=== PATIENT | female | born 1975 | race Two or more races ===

== ENCOUNTER → 2023-09-16 15:41 | Outpatient (REF) | payer BC, SELFPAY | LOC: WDC 15:41 | PROVIDERS: ATTENDING PHYSICIAN Obstetrics & Gynecology Gynecology; FAMILY PHYSICIAN Internal Medicine Geriatric Medicine | DX: Z12.31 Encounter for screening mammogram for malignant neoplasm of breast (principal) | CPT/HCPCS: 77063; 77067 ==

== ENCOUNTER → 2024-01-18 08:52 | Outpatient (REF) | payer BC, SELFPAY ==
[2024-01-18 09:47] LABS: % Basophils 0.5 % (0-2); % Eosinophils 2.8 % (0-6); % Immature Granulocytes 0.4 % (0-0.5); % Lymphocytes 27.9 % (20.5-51.1); % Monocytes 6.4 % (1.7-9.3); Absolute Eosinophils 0.2 10^3/uL (0-0.7); Absolute Lymphocytes 2.2 10^3/uL (1.2-3.4); Absolute Monocytes 0.5 10^3/uL (0.1-0.6); Absolute Neutrophils 4.8 10^3/uL (1.4-6.5); Hematocrit 36.7 % (37.0-47.0); Hemoglobin 12.2 g/dL (12.0-16.0); Mean Corp Hgb Conc. 33.2 g/dL (33.0-37.0); Mean Corpuscular Hgb 27.9 pg (27.0-31.0); Mean Corpuscular Volume 83.8 fL (81.0-99.0); Mean Platelet Volume 11.6 fL (7.4-10.4); Nucleated Red Blood Cells % 0 %; Platelet Count 230 10^3/uL (130-400); Red Blood Cell Count 4.38 10^6/uL (4.20-5.40); Red Cell Dist. Width 14.3 % (11.5-14.5); White Blood Cell Count 7.8 10^3/uL (4.8-10.8)
[2024-01-18 09:51] LABS: ALT (SGPT) 26 U/L (0-35); AST (SGOT) 30 U/L (14-36); Alkaline Phosphatase 68 U/L (38-126); Blood Urea Nitrogen 12 mg/dl (7-17); Calcium 9.6 mg/dl (8.4-10.2); Carbon Dioxide 30 mmol/L (22-30); Chloride 101 mmol/L (98-107); Glucose 99 mg/dl (70-99); HDL Cholesterol 84 mg/dl; Iron 101 ug/dl (37-170); LDL Cholesterol, Calculated 89 mg/dl; Sodium 136 mmol/L (135-145); Total Bilirubin 0.5 mg/dl (0.2-1.3); Total Cholesterol 190 mg/dl (50-199); Total Protein 6.7 g/dl (6.3-8.2); Triglyceride 85 mg/dl (10-149); Very Low Density Lipoprotein 17 mg/dl (0-30); eGFR > 60.00
[2024-01-18 10:01] LABS: Percent Saturation 24 % (20-50); Total Iron Binding Capacity 409 ug/dl (265-497)
[2024-01-18 10:09] LABS: Free T4 1.21 ng/dl (0.78-2.19)
[2024-01-18 10:22] LABS: TSH 1.85 uIU/ml (0.47-4.68)
[2024-01-18 10:31] LABS: Erythrocyte Sed Rate 11 mm/hour (0-20)
[2024-01-18 14:32] LABS: Urine Albumin Negative (Neg - Trace); Urine Bilirubin Negative (Negative); Urine Character Clear (Clear); Urine Color Yellow; Urine Glucose Negative (Negative); Urine Ketone Negative (Negative); Urine Leukocyte Trace (Negative); Urine Nitrite Negative (Negative); Urine Occult Blood Negative (Negative); Urine Specific Gravity 1.005 (<1.030); Urine Urobilinogen Negative (Neg - 1+)
[2024-01-18 14:56] LABS: Urine Red Blood Cell 0-2 /HPF (0-2); Urine White Cell 0-2 /HPF (0-5)
[2024-01-19 16:14] LABS: Thyroglobulin Antibodies <0.9 IU/mL (0.0-4.0); Thyroid Peroxidase Ab (TPO) <0.3 IU/mL (0.0-9.0)
== END ==
LOC: CLAB 08:52
PROVIDERS: ATTENDING PHYSICIAN Internal Medicine Geriatric Medicine
DX: Z00.00 Encounter for general adult medical examination without abnormal findings (principal); K21.9 Gastro-esophageal reflux disease without esophagitis; E61.1 Iron deficiency; E78.2 Mixed hyperlipidemia; E53.8 Deficiency of other specified B group vitamins; E74.39 Other disorders of intestinal carbohydrate absorption; F41.1 Generalized anxiety disorder; E03.8 Other specified hypothyroidism; E55.9 Vitamin D deficiency, unspecified; M25.561 Pain in right knee; M25.511 Pain in right shoulder; M54.2 Cervicalgia; M25.512 Pain in left shoulder; M54.50 Low back pain, unspecified; Z13.31 Encounter for screening for depression; R00.2 Palpitations; R68.89 Other general symptoms and signs
CPT/HCPCS: 36415; 80053; 80061; 81003; 81015; 82306; 83540; 83550; 84439; 84443; 85025; 85652; 86376; 86800

== ENCOUNTER → 2024-03-09 15:45 | Outpatient (REF) | payer BC, SELFPAY | LOC: RCS 15:45 | PROVIDERS: ATTENDING PHYSICIAN Internal Medicine Geriatric Medicine | DX: R00.2 Palpitations (principal); R68.89 Other general symptoms and signs | CPT/HCPCS: 93306 ==

== ENCOUNTER → 2024-05-30 09:36 | Outpatient (REF) | payer BC, SELFPAY ==
[2024-05-30 10:11] LABS: % Basophils 0.5 % (0-2); % Eosinophils 3.1 % (0-6); % Immature Granulocytes 0.3 % (0-0.5); % Lymphocytes 23.9 % (20.5-51.1); % Monocytes 6.4 % (1.7-9.3); % Neutrophils 65.8 % (42.2-75.2); Absolute Eosinophils 0.2 10^3/uL (0-0.7); Absolute Lymphocytes 1.8 10^3/uL (1.2-3.4); Absolute Monocytes 0.5 10^3/uL (0.1-0.6); Absolute Neutrophils 4.9 10^3/uL (1.4-6.5); Hematocrit 37.1 % (37.0-47.0); Hemoglobin 12.1 g/dL (12.0-16.0); Mean Corp Hgb Conc. 32.6 g/dL (33.0-37.0); Mean Corpuscular Hgb 27.3 pg (27.0-31.0); Mean Corpuscular Volume 83.7 fL (81.0-99.0); Mean Platelet Volume 11.2 fL (7.4-10.4); Nucleated Red Blood Cells % 0 %; Platelet Count 264 10^3/uL (130-400); Red Blood Cell Count 4.43 10^6/uL (4.20-5.40); Red Cell Dist. Width 13.8 % (11.5-14.5); White Blood Cell Count 7.5 10^3/uL (4.8-10.8)
[2024-05-30 10:26] LABS: ALT (SGPT) 29 U/L (0-35); AST (SGOT) 29 U/L (14-36); Alkaline Phosphatase 71 U/L (38-126); Blood Urea Nitrogen 18 mg/dl (7-17); Calcium 9.2 mg/dl (8.4-10.2); Carbon Dioxide 28 mmol/L (22-30); Chloride 101 mmol/L (98-107); Glucose 96 mg/dl (70-99); HDL Cholesterol 78 mg/dl; Iron 75 ug/dl (37-170); LDL Cholesterol, Calculated 101 mg/dl; Potassium 4.6 mmol/L (3.5-5.1); Sodium 137 mmol/L (135-145); Total Bilirubin 0.3 mg/dl (0.2-1.3); Total Cholesterol 193 mg/dl (50-199); Total Protein 6.9 g/dl (6.3-8.2); Triglyceride 73 mg/dl (10-149); Very Low Density Lipoprotein 14 mg/dl (0-30); eGFR > 60.00
[2024-05-30 10:35] LABS: Percent Saturation 19 % (20-50); Total Iron Binding Capacity 381 ug/dl (265-497)
[2024-05-30 10:41] LABS: Free T4 1.24 ng/dl (0.78-2.19); Vitamin D, 25-OH*** 47.9 ng/mL (30-80)
[2024-05-30 10:54] LABS: TSH 1.39 uIU/ml (0.47-4.68)
[2024-05-30 10:58] LABS: Ferritin 13.5 ng/ml (6.24-137)
[2024-05-30 12:11] LABS: Urine Albumin Negative (Neg - Trace); Urine Bilirubin Negative (Negative); Urine Character Clear (Clear); Urine Color Yellow; Urine Glucose Negative (Negative); Urine Ketone Negative (Negative); Urine Leukocyte Negative (Negative); Urine Nitrite Negative (Negative); Urine Occult Blood Negative (Negative); Urine Specific Gravity 1.005 (<1.030); Urine Urobilinogen Negative (Neg - 1+); Urine pH 6.5 (5.0-9.0)
== END ==
LOC: REG 09:36
PROVIDERS: ATTENDING PHYSICIAN Internal Medicine Geriatric Medicine
DX: E78.2 Mixed hyperlipidemia (principal); K21.9 Gastro-esophageal reflux disease without esophagitis; E61.1 Iron deficiency; E53.8 Deficiency of other specified B group vitamins; F41.1 Generalized anxiety disorder; E03.8 Other specified hypothyroidism; E55.9 Vitamin D deficiency, unspecified; M25.561 Pain in right knee; M25.511 Pain in right shoulder; M54.2 Cervicalgia; Z13.89 Encounter for screening for other disorder; M25.512 Pain in left shoulder; M54.50 Low back pain, unspecified; R00.2 Palpitations; R68.89 Other general symptoms and signs; F41.0 Panic disorder [episodic paroxysmal anxiety]
CPT/HCPCS: 36415; 80053; 80061; 81003; 82306; 82728; 83540; 83550; 84439; 84443; 85025

== ENCOUNTER → 2024-09-13 10:46 | Outpatient (REF) | payer BC, SELFPAY ==
[2024-09-13 11:06] LABS: % Basophils 0.5 % (0-2); % Eosinophils 2.9 % (0-6); % Immature Granulocytes 0.3 % (0-0.5); % Lymphocytes 30.6 % (20.5-51.1); % Monocytes 5.1 % (1.7-9.3); % Neutrophils 60.6 % (42.2-75.2); Absolute Eosinophils 0.2 10^3/uL (0-0.7); Absolute Lymphocytes 1.9 10^3/uL (1.2-3.4); Absolute Monocytes 0.3 10^3/uL (0.1-0.6); Absolute Neutrophils 3.8 10^3/uL (1.4-6.5); Hematocrit 37.4 % (37.0-47.0); Hemoglobin 12.3 g/dL (12.0-16.0); Mean Corp Hgb Conc. 32.9 g/dL (33.0-37.0); Mean Corpuscular Hgb 27.2 pg (27.0-31.0); Mean Corpuscular Volume 82.7 fL (81.0-99.0); Mean Platelet Volume 10.9 fL (7.4-10.4); Nucleated Red Blood Cells % 0 %; Platelet Count 237 10^3/uL (130-400); Red Blood Cell Count 4.52 10^6/uL (4.20-5.40); Red Cell Dist. Width 14.2 % (11.5-14.5); White Blood Cell Count 6.3 10^3/uL (4.8-10.8)
[2024-09-13 11:18] LABS: ALT (SGPT) 24 U/L (0-35); AST (SGOT) 25 U/L (14-36); Alkaline Phosphatase 75 U/L (38-126); Blood Urea Nitrogen 14 mg/dl (7-17); Calcium 9.6 mg/dl (8.4-10.2); Carbon Dioxide 29 mmol/L (22-30); Chloride 104 mmol/L (98-107); Glucose 108 mg/dl (70-99); HDL Cholesterol 72 mg/dl; Iron 103 ug/dl (37-170); LDL Cholesterol, Calculated 115 mg/dl; Potassium 4.6 mmol/L (3.5-5.1); Sodium 140 mmol/L (135-145); Total Bilirubin 0.6 mg/dl (0.2-1.3); Total Cholesterol 201 mg/dl (50-199); Triglyceride 72 mg/dl (10-149); Very Low Density Lipoprotein 14 mg/dl (0-30); eGFR > 60.00
[2024-09-13 11:27] LABS: Percent Saturation 27 % (20-50); Total Iron Binding Capacity 378 ug/dl (265-497)
[2024-09-13 11:47] LABS: Free T4 1.29 ng/dl (0.78-2.19); Vitamin D, 25-OH*** 54.6 ng/mL (30-80)
[2024-09-13 11:51] LABS: Urine Albumin Negative (Neg - Trace); Urine Bilirubin Negative (Negative); Urine Character Clear (Clear); Urine Color Yellow; Urine Glucose Negative (Negative); Urine Ketone Negative (Negative); Urine Leukocyte Negative (Negative); Urine Nitrite Negative (Negative); Urine Occult Blood 1+ (Negative); Urine Specific Gravity 1.005 (<1.030); Urine Urobilinogen Negative (Neg - 1+)
[2024-09-13 12:00] LABS: Rheumatoid Agglutinin Less Than 10 IU (<10 IU)
[2024-09-13 12:01] LABS: TSH 1.07 uIU/ml (0.47-4.68)
[2024-09-13 12:29] LABS: Erythrocyte Sed Rate 10 mm/hour (0-20)
[2024-09-13 12:39] LABS: Urine Bacteria Few (Negative); Urine Red Blood Cell 0-2 /HPF (0-2); Urine White Cell 0-2 /HPF (0-5)
[2024-09-14 15:23] LABS: ANA, IgG Reflex to HEp-2 None Detected (None Detected)
[2024-09-14 15:25] LABS: Lyme Ab Western Blot IgG Negative (Negative); Lyme Ab Western Blot IgM Negative (Negative)
[2024-09-14 15:37] LABS: CCP Antibody IgG/IgA 6 Units (0-19)
[2024-09-15 10:53] LABS: Glycohemoglobin (HgbA1c) 5.7 % (4.0-5.6)
== END ==
LOC: CLAB 10:46
PROVIDERS: ATTENDING PHYSICIAN Internal Medicine Geriatric Medicine
DX: Z00.00 Encounter for general adult medical examination without abnormal findings (principal); E78.2 Mixed hyperlipidemia; K21.9 Gastro-esophageal reflux disease without esophagitis; E61.1 Iron deficiency; E53.8 Deficiency of other specified B group vitamins; F41.1 Generalized anxiety disorder; E03.8 Other specified hypothyroidism; E55.9 Vitamin D deficiency, unspecified; M25.561 Pain in right knee; M25.511 Pain in right shoulder; M54.2 Cervicalgia; Z13.89 Encounter for screening for other disorder; M25.512 Pain in left shoulder; M54.50 Low back pain, unspecified; R00.2 Palpitations; A69.20 Lyme disease, unspecified
CPT/HCPCS: 36415; 80053; 80061; 81003; 81015; 82306; 82728; 83036; 83540; 83550; 84439; 84443; 85025; 85652; 86038; 86140; 86200; 86430; 86617

== ENCOUNTER → 2024-09-21 15:40 | Outpatient (REF) | payer BC, SELFPAY | LOC: WDC 15:40 | PROVIDERS: ATTENDING PHYSICIAN Obstetrics & Gynecology Gynecology; FAMILY PHYSICIAN Internal Medicine Geriatric Medicine | DX: Z12.31 Encounter for screening mammogram for malignant neoplasm of breast (principal) | CPT/HCPCS: 77063; 77067 ==

== ENCOUNTER → 2025-05-10 09:13 | Outpatient (REF) | payer BC, SELFPAY ==
[2025-05-10 10:14] LABS: Hematocrit 38.1 % (37.0-47.0); Hemoglobin 12.4 g/dL (12.0-16.0); Mean Corp Hgb Conc. 32.5 g/dL (33.0-37.0); Mean Corpuscular Volume 82.6 fL (81.0-99.0); Nucleated Red Blood Cells % 0 %; Platelet Count 257 10^3/uL (130-400); Red Cell Dist. Width 13.7 % (11.5-14.5)
[2025-05-10 10:32] LABS: ALT (SGPT) 29 U/L (0-35); AST (SGOT) 28 U/L (14-36); Albumin 4.2 g/dl (3.5-5.0); Alkaline Phosphatase 89 U/L (38-126); Blood Urea Nitrogen 12 mg/dl (7-17); Calcium 9.0 mg/dl (8.4-10.2); Carbon Dioxide 30 mmol/L (22-30); Chloride 102 mmol/L (98-107); Glucose 95 mg/dl (70-99); HDL Cholesterol 78 mg/dl; Iron 57 ug/dl (37-170); LDL Cholesterol, Calculated 118 mg/dl; Potassium 4.1 mmol/L (3.5-5.1); Sodium 136 mmol/L (135-145); Total Protein 7.2 g/dl (6.3-8.2); Very Low Density Lipoprotein 14 mg/dl (0-30); eGFR > 60.00
[2025-05-10 10:41] LABS: Total Iron Binding Capacity 401 ug/dl (265-497)
[2025-05-10 11:52] LABS: Ferritin 15.5 ng/ml (6.24-137)
[2025-05-10 12:06] LABS: Vitamin B12 771 pg/ml (239-931)
[2025-05-10 12:14] LABS: Glycohemoglobin (HgbA1c) 5.7 % (4.0-5.9)
[2025-05-13 00:17] LABS: Lipoprotein a (Lp a) 95 mg/dL (<=29)
== END ==
LOC: REG 09:13
PROVIDERS: ATTENDING PHYSICIAN Internal Medicine Geriatric Medicine
DX: E78.2 Mixed hyperlipidemia (principal); E61.1 Iron deficiency; E53.8 Deficiency of other specified B group vitamins; R53.83 Other fatigue; R73.01 Impaired fasting glucose; K21.9 Gastro-esophageal reflux disease without esophagitis; F41.1 Generalized anxiety disorder; E03.8 Other specified hypothyroidism; E55.9 Vitamin D deficiency, unspecified; M25.561 Pain in right knee; M25.511 Pain in right shoulder; M54.2 Cervicalgia; M25.512 Pain in left shoulder; M54.50 Low back pain, unspecified; R00.2 Palpitations; Z13.89 Encounter for screening for other disorder; Z82.49 Family history of ischemic heart disease and other diseases of the circulatory system
CPT/HCPCS: 36415; 80053; 80061; 82172; 82607; 82728; 83036; 83540; 83550; 83695; 83704; 85025; 86735; 86762; 86765